=== PATIENT | female | born 2000 | race African-American/Black ===

== ENCOUNTER 2019-11-04 19:40 | Emergency (ER) | payer SELFPAY ==
[2019-11-04 19:59] VITALS: BP 121/59
--- NOTE | 2019-11-04 21:21 | ER Document Report ---
ED Medical Screen (RME) - General Chief Complaint: Pelvic Pain Stated Complaint: ABDOMINAL PAIN VAGINAL BLEEDING Time Seen by Provider: 11/04/19 21:19 Mode of Arrival: Wheelchair Information source: Patient Notes: 18-year-old female presents to ED for vaginal bleeding and pelvic pain that started this morning. She states she was bleeding heavily earlier but now she is just spotting. She states her last menstrual cycle was last week and that she started bleeding this morning. She states she was out in the heat earlier and got overheated before she started with the bleeding and pain. She does have a history of scoliosis asthma and left torn meniscus. She states she does not smoke cigarettes she drinks about once a month and smokes marijuana occasionally but not recently. She is alert oriented respirations regular nonlabored speaking in full sentences. I have greeted and performed a rapid initial assessment of this patient. A comprehensive ED assessment and evaluation of the patient, analysis of test results and completion of medical decision making process will be conducted by an additional ED providers. - Related Data Home Medications: control, vinocin, singulair Past Medical History - Social History Chew tobacco use (# tins/day): No Frequency of alcohol use: Occasional Drug Abuse: Marijuana Physical Exam - Vital signs Vitals: Temp Pulse Resp BP Pulse Ox 99.1 F 74 16 121/59 L 99 11/04/19 19:52 11/04/19 19:52 11/04/19 19:52 11/04/19 19:52 11/04/19 19:52 Course - Vital Signs Vital signs: Temp Pulse Resp BP Pulse Ox 99.1 F 74 16 121/59 L 99 11/04/19 21:17 11/04/19 19:52 11/04/19 19:52 11/04/19 19:52 11/04/19 19:52
[2019-11-04] MEDS ORDERED: IBUPROFEN 800 MG TABLET PO ONE (21:24)
[2019-11-04 23:00] LABS: APPEARANCE,URINE SLIGHTLY-CLOUDY; BILIRUBIN,URINE NEGATIVE (NEGATIVE); COLOR,URINE YELLOW; GLUCOSE, URINE NEGATIVE (NEGATIVE); KETONES,URINE NEGATIVE (NEGATIVE); LEUKOCYTE ESTERASE,URINE NEGATIVE (NEGATIVE); NITRITE,URINE NEGATIVE (NEGATIVE); PROTEIN,URINE NEGATIVE (NEGATIVE); UROBILINOGEN,URINE NEGATIVE mg/dL (<2.0)
[2019-11-04 23:03] LABS: ABSOLUTE BASOPHILS # (AUTO) 0.1 10^3/uL (0.0-0.2); ABSOLUTE EOSINOPHILS # (AUTO) 0.2 10^3/uL (0.0-0.6); ABSOLUTE LYMPHOCYTES (AUTO) 2.7 10^3/uL (0.5-4.7); ABSOLUTE MONOCYTES (AUTO) 0.4 10^3/uL (0.1-1.4); BASOPHILS % (AUTO) 0.8 % (0-2); EOSINOPHILS % (AUTO) 3.7 % (0-6); HEMATOCRIT 38.1 % (36.0-47.0); HEMOGLOBIN 13.2 g/dL (12.0-15.5); LYMPHOCYTES % (AUTO) 42.1 % (13-45); MEAN CORPUSCULAR HEMOGLOBIN 31.8 pg (27.0-33.4); MEAN CORPUSCULAR HGB CONC 34.7 g/dL (32.0-36.0); MEAN CORPUSCULAR VOLUME 92 fl (80-97); MONOCYTES % (AUTO) 5.6 % (3-13); PLATELET COUNT 251 10^3/uL (150-450); RED BLOOD COUNT 4.15 10^6/uL (3.72-5.28); RED CELL DISTRIBUTION WIDTH 12.7 % (11.5-14.0); SEGMENTED NEUTROPHILS % (AUTO) 47.8 % (42-78); TOTAL CELLS COUNTED % (AUTO) 100 %; WHITE BLOOD COUNT 6.4 10^3/uL (4.0-10.5)
--- NOTE | 2019-11-04 23:09 | RADIOLOGY REPORT (SQ) ---
EXAM DESCRIPTION: ULTRASOUND PELVIS TRANSABDOMINAL AND TRANSVAGINAL AND DOPPLER EVALUATION OF THE OVARIES CLINICAL HISTORY: History of bleeding. COMPARISON: None available TECHNIQUE: A transabdominal and transvaginal pelvic ultrasound was done, followed by Doppler evaluation of the ovaries. FINDINGS: Uterus measures 6.8 x 3.1 x 4.3 centimeters. There are no focal lesions in the uterus. The endometrium in double layer thickness measures 3.1 mm. The right ovary measures 2.4 x 2.2 x 1.6 centimeters. The left ovary measures 2.8 x 1.6 x 3.2 centimeters. Presumed dominant left ovarian follicle is identified. There is normal color flow and Doppler signal in the right and the left ovary. There are no focal ovarian lesions on either side. There are no focal adnexal masses on either side. There is no evidence of significant free fluid in the cul-de-sac. IMPRESSION: Normal ultrasound appearance of the uterus and ovaries.
[2019-11-04 23:18] LABS: ALBUMIN 4.6 g/dL (3.5-5.0); ALKALINE PHOSPHATASE 67 U/L (38-126); ASPARTATE AMINO TRANSFERASE 24 U/L (14-36); BILIRUBIN,TOTAL 0.5 mg/dL (0.2-1.3); BLOOD UREA NITROGEN 12 mg/dL (7-20); CALCIUM 9.5 mg/dL (8.4-10.2); CARBON DIOXIDE 24 mmol/L (22-30); CHLORIDE 109 mmol/L (98-107); GLUCOSE 88 mg/dL (75-110); POTASSIUM 4.2 mmol/L (3.6-5.0); TOTAL PROTEIN 7.3 g/dL (6.3-8.2)
[2019-11-04 23:39] LABS: ANION GAP 4 (5-19)
== END 2019-11-05 00:24 | disposition left against medical advice (07) ==
LOC: ER 19:40
DX: R10.2 Pelvic and perineal pain (principal); N93.8 Other specified abnormal uterine and vaginal bleeding; Z79.3 Long term (current) use of hormonal contraceptives
CPT/HCPCS: 36415; 76830; 80053; 81001; 84702; 85025; 87086; 87088; 99281

== ENCOUNTER 2019-11-05 14:21 | Emergency (ER) | payer OTHER ==
--- NOTE | 2019-11-05 15:13 | ER Document Report ---
ED Medical Screen (RME) - General Chief Complaint: Vaginal Bleeding Stated Complaint: ABDOMINAL,CHILLS,NAUSEA Time Seen by Provider: 11/05/19 15:04 Mode of Arrival: Ambulatory Information source: Patient Notes: 18-year-old female presented to ED for complaint of vaginal bleeding and pelvic/lower abdominal pain. She was seen yesterday but the pain got so bad she went home before waiting for the results. She is alert oriented respirations regular nonlabored speaking in full sentences. We will repeat the labs and the ultrasound yesterday was negative. She states today the pain got so bad she passed out so she returned to the emergency room. Patient is alert oriented respirations regular nonlabored speaking in full sentences. I have greeted and performed a rapid initial assessment of this patient. A comprehensive ED assessment and evaluation of the patient, analysis of test results and completion of medical decision making process will be conducted by an additional ED providers. - Related Data Allergies/Adverse Reactions: peach Allergy (Verified 11/04/19 21:20) Home Medications: Montelukast Past Medical History - Social History Drug Abuse: Marijuana Physical Exam - Vital signs Vitals: Temp Pulse Resp BP Pulse Ox 98.2 F 71 16 119/75 99 11/05/19 14:27 11/05/19 14:27 11/05/19 14:27 11/05/19 14:27 11/05/19 14:27 Course - Vital Signs Vital signs: Temp Pulse Resp BP Pulse Ox 98.2 F 71 16 119/75 99 11/05/19 14:27 11/05/19 14:27 11/05/19 14:27 11/05/19 14:27 11/05/19 14:27
[2019-11-05 15:37] LABS: ABSOLUTE EOSINOPHILS # (AUTO) 0.2 10^3/uL (0.0-0.6); ABSOLUTE LYMPHOCYTES (AUTO) 1.8 10^3/uL (0.5-4.7); ABSOLUTE MONOCYTES (AUTO) 0.3 10^3/uL (0.1-1.4); ABSOLUTE NEUT (AUTO) 2.7 10^3/uL (1.7-8.2); BASOPHILS % (AUTO) 0.9 % (0-2); EOSINOPHILS % (AUTO) 3.3 % (0-6); HEMATOCRIT 38.9 % (36.0-47.0); HEMOGLOBIN 13.8 g/dL (12.0-15.5); MEAN CORPUSCULAR HEMOGLOBIN 32.5 pg (27.0-33.4); MEAN CORPUSCULAR HGB CONC 35.6 g/dL (32.0-36.0); MEAN CORPUSCULAR VOLUME 91 fl (80-97); MONOCYTES % (AUTO) 5.4 % (3-13); PLATELET COUNT 241 10^3/uL (150-450); RED BLOOD COUNT 4.26 10^6/uL (3.72-5.28); RED CELL DISTRIBUTION WIDTH 12.7 % (11.5-14.0); SEGMENTED NEUTROPHILS % (AUTO) 53.4 % (42-78); TOTAL CELLS COUNTED % (AUTO) 100 %
[2019-11-05 15:40] LABS: APPEARANCE,URINE CLEAR; BILIRUBIN,URINE NEGATIVE (NEGATIVE); COLOR,URINE YELLOW; GLUCOSE, URINE NEGATIVE (NEGATIVE); KETONES,URINE NEGATIVE (NEGATIVE); LEUKOCYTE ESTERASE,URINE NEGATIVE (NEGATIVE); NITRITE,URINE NEGATIVE (NEGATIVE); PROTEIN,URINE NEGATIVE (NEGATIVE); URINE SPECIFIC GRAVITY 1.021; UROBILINOGEN,URINE NEGATIVE mg/dL (<2.0)
[2019-11-05 15:53] LABS: ALBUMIN 4.8 g/dL (3.5-5.0); ALKALINE PHOSPHATASE 59 U/L (38-126); ANION GAP 6 (5-19); ASPARTATE AMINO TRANSFERASE 24 U/L (14-36); BILIRUBIN,TOTAL 0.9 mg/dL (0.2-1.3); BLOOD UREA NITROGEN 11 mg/dL (7-20); CALCIUM 9.7 mg/dL (8.4-10.2); CARBON DIOXIDE 24 mmol/L (22-30); CHLORIDE 109 mmol/L (98-107); GLUCOSE 90 mg/dL (75-110); POTASSIUM 4.3 mmol/L (3.6-5.0); TOTAL PROTEIN 7.6 g/dL (6.3-8.2)
[2019-11-05 15:55] LABS: URINE AMPHETAMINES SCREEN NEGATIVE; URINE BARBITURATES SCREEN NEGATIVE; URINE BENZODIAZEPINES SCREEN NEGATIVE; URINE COCAINE SCREEN NEGATIVE; URINE MARIJUANA (THC) SCREEN NEGATIVE; URINE METHADONE SCREEN NEGATIVE; URINE PHENCYCLIDINE SCREEN NEGATIVE
[2019-11-05] MEDS ORDERED: OXYCODONE-ACETAMINOPHEN 5-325 MG TABLET PO ONE (17:21)
[2019-11-05] MEDS ORDERED: KETOROLAC TROMETHAMINE 60 MG/2 ML SDV IM ONE (17:21)
--- NOTE | 2019-11-05 17:28 | ER Document Report ---
ED General - General Chief Complaint: Vaginal Bleeding Stated Complaint: ABDOMINAL,CHILLS,NAUSEA Time Seen by Provider: 11/05/19 15:04 Primary Care Provider: MELLY BONNER MD [ACTIVE STAFF] - Follow up as needed Mode of Arrival: Ambulatory - HPI Notes: Patient is a 18-year-old female presents emergency department for evaluation of pelvic pain and abnormal vaginal bleeding. She has a Norplant. She states that yesterday she was out to dinner, went to the bathroom. She had abnormal vaginal bleeding. She had some severe pelvic pain associated with it. She states it still remains, has improved, but is still significant. She states that she had heavy bright red bleeding yesterday, her bleeding today is more similar to regular menstruation. She said no fevers. She states she felt chilled when her pain came on. She states that in the past she has had abnormal bleeding when she becomes very stressed, overheated, or "overworks herself." - Related Data Allergies/Adverse Reactions: peach Allergy (Verified 11/04/19 21:20) Home Medications: Montelukast, minocycline, albuterol Past Medical History - General Information source: Patient - Social History Smoking Status: Never Smoker Drug Abuse: Marijuana Family History: Reviewed & Not Pertinent Pulmonary Medical History: Reports: Hx Asthma Musculoskeletal Medical History: Reports Hx Musculoskeletal Deformity - Left knee meniscal tear Surgical Hx: Negative Review of Systems - Review of Systems Female Genitourinary: See HPI -: Yes All other systems reviewed and negative Physical Exam - Vital signs Vitals: Temp Pulse Resp BP Pulse Ox 98.2 F 71 16 119/75 99 11/05/19 14:27 11/05/19 14:27 11/05/19 14:27 11/05/19 14:27 11/05/19 14:27 - Notes Notes: Vital signs reviewed, please refer to chart. Head is normocephalic, atraumatic. Pupils equal round, reactive to light. Neck is supple without meningismus. Heart is regular rate and rhythm. Lungs are clear to auscultation bilaterally. Abdomen is soft, nontender, normoactive bowel sounds throughout. Extremities without cyanosis, clubbing. Posterior calves are nontender. Peripheral pulses are equal. Skin is warm and dry. Patient is awake, alert, neurological exam is nonfocal. Course - Re-evaluation Re-evalutation: 11/05/19 17:25 Patient presents to the emergency department for evaluation of abnormal vaginal bleeding and pelvic pain. She denies any discharge. She states this is happened in the past. My suspicion is that this is secondary to her Norplant. She is given Toradol and Percocet here. She had ultrasound done yesterday which showed absolutely no abnormality. Her blood work and urine are unremarkable. Her test is negative. I strongly encouraged her to follow-up with gynecology. She may benefit from switching her control methods at this time given her frequent breakthrough bleeding. Otherwise I will send her home with a prescription for anti-inflammatories and referral onto OB. She is amenable to this plan. She is to return the ED with worsening or new concerning symptoms of any sort. - Vital Signs Vital signs: Temp Pulse Resp BP Pulse Ox 98 F 70 16 109/80 98 11/05/19 17:38 11/05/19 17:38 11/05/19 17:38 11/05/19 17:38 11/05/19 17:38 - Laboratory Result Diagrams: 11/05/19 15:20 11/05/19 15:20 Laboratory results interpreted by me: 11/05/19 11/05/19 15:20 15:20 Chloride 109 H Urine Blood SMALL H Discharge - Discharge Clinical Impression: Abnormal vaginal bleeding in premenopausal patient, Pelvic pain Condition: Good Disposition: HOME, SELF-CARE Instructions: Pelvic Pain ([facility]), Vaginal Bleeding ([facility]) Additional Instructions: Take medication as prescribed. Follow-up with OB in 1 to 2 weeks. Return emergency department worsening or new concerning symptoms of any sort. Prescriptions: Naproxen [Naprosyn] 500 mg PO BID #20 tablet Referrals: MLELY BONNER MD [ACTIVE STAFF] - Follow up as needed
[2019-11-05 17:39] VITALS: BP 109/80
== END 2019-11-05 17:55 | disposition home or self-care (01) ==
LOC: ER 14:21
DX: N93.8 Other specified abnormal uterine and vaginal bleeding (principal); R10.2 Pelvic and perineal pain; R68.83 Chills (without fever); R11.0 Nausea
CPT/HCPCS: 99284; 96372; 36415; 84703; 85025; 80053; 81001; 80307; J1885

== ENCOUNTER 2019-12-24 17:22 | Emergency (ER) | payer MEDICAID ==
[2019-12-24] MEDS ORDERED: ONDANSETRON 4 MG TAB.RAPDIS PO ONE (18:35)
[2019-12-24] MEDS ORDERED: ACETAMINOPHEN 325 MG TABLET PO ONE (18:35)
--- NOTE | 2019-12-24 18:39 | ER Document Report ---
ED General - General Chief Complaint: Nausea/Vomiting Stated Complaint: NAUSEA Time Seen by Provider: 12/24/19 18:00 Primary Care Provider: JOSELITO SWIFT MD [COMMUNITY BASED STAFF] - Follow up as needed Mode of Arrival: Ambulatory Information source: Patient Notes: 18-year-old female past medical history significant for anxiety, depression, asthma presents to the emergency room complaining of generalized weakness with nausea,abdominal pain, chest pain, and a headache that started earlier this morning. Describes the chest pain and headache as a dull ache, describes abdominal pain as cramping denies any fevers. Denies worst headache of her life. Denies any sudden thunderclap. Complains of chills. No medications for symptoms. Had negative COVID-19 test on Saturday. No recent travel. No known COVID-19 exposure. Has been eating and drinking normally. TRAVEL OUTSIDE OF THE [place] IN LAST 30 DAYS: No - Related Data Allergies/Adverse Reactions: peach Allergy (Verified 12/24/19 18:10) Past Medical History - General Information source: Patient - Social History Smoking Status: Never Smoker Frequency of alcohol use: Occasional Drug Abuse: Marijuana Family History: Reviewed & Not Pertinent Patient has homicidal ideation: No Pulmonary Medical History: Reports: Hx Asthma Musculoskeletal Medical History: Reports Hx Musculoskeletal Deformity - Left knee meniscal tear Psychiatric Medical History: Reports: Hx Depression - anxiety Review of Systems - Review of Systems Constitutional: Chills, Malaise EENT: No symptoms reported Cardiovascular: Chest pain Respiratory: No symptoms reported Gastrointestinal: Abdominal pain, Nausea. denies: Diarrhea, Vomiting Genitourinary: No symptoms reported Musculoskeletal: No symptoms reported Skin: No symptoms reported Neurological/Psychological: Headaches -: Yes All other systems reviewed and negative Physical Exam - Vital signs Vitals: Temp Pulse Resp BP Pulse Ox 98.3 F 89 18 117/69 100 12/24/19 18:00 12/24/19 18:00 12/24/19 18:00 12/24/19 18:00 12/24/19 18:00 - Notes Notes: VITAL SIGNS: Within normal limits. GENERAL: Mild acute distress, non-toxic appearance. HEAD: Normal with no signs of head trauma. EYES: PERRLA, EOMI, conjunctiva normal, no discharge. EARS: Hearing grossly intact. NOSE: Normal. THROAT: Oropharynx is normal. NECK: Normal range of motion, no tenderness, supple, no lymphadenopathy, No adenopathy, no JVD. CHEST: Clear breath sounds bilaterally. No wheezes, rales, or rhonchi. CARDIAC: Regular rate and rhythm. S1 and S2, without murmurs, gallops, or rubs. VASCULAR: No Edema. Peripheral pulses normal and equal in all extremities. ABDOMEN: Normal and soft with no tenderness, no masses or pulsatile masses. No organomegaly. Positive bowel sounds x4. No CVA tenderness noted bilaterally. GASTROINTESTINAL: Bowel sounds normal GENITOURINARY: Normal, No tenderness LYMPATHTIC: No lymphadenopathy noted. MUSCULOSKELETAL: Good range of motion of all major joints. Extremities without clubbing, cyanosis or edema. NEUROLOGICAL: Alert and oriented x 3. No focal sensory or strength deficits. Speech normal. Follows commands appropriately. PSYCHIATRIC: Normal Affect, judgement and mood. SKIN: Normal appearance with no rashes or lesions. Course - Re-evaluation Re-evalutation: 12/24/19 20:31 HEART Score: History 0 ECG 0 Age 0 Risk Factors 0 Troponin 0 Total: 0 12/24/2019 21:10 Chest pain in a patient without evidence of cardiac or other serious etiology on workup today. I discussed with patient that, based on their age, risk factors and emergency department testing today, the likelihood that their symptoms are related to a heart attack is very low (estimated risk of heart attack or over the next 30 days of less than 1%). The patient demonstrates decision making capacity and has verbalized an understanding of these risks to me. Based on this, the patient has chosen to follow-up as an outpatient. Usual chest pain return precautions reviewed. The patient states understanding and agreement with this plan. 12/24/19 21:09 Patient is resting comfortably she is currently pain-free. Nausea has resolved. Able to tolerate p.o. fluids. All test results were reviewed with patient. Counseled to rest, push fluids, Tylenol and or Motrin as needed for general body aches. Zofran as prescribed for nausea. Recheck with a primary care physician if not improving in 2 to 3 days. On-call physician was provided. Patient was given strict return to the emergency room guidelines. Return for any new or worsening symptoms. All questions were answered. Patient verbalized understanding and agrees with plan of care. 12/24/19 21:10 - Vital Signs Vital signs: Temp Pulse Resp BP Pulse Ox 98.2 F 82 17 118/68 100 12/24/19 21:31 12/24/19 21:31 12/24/19 21:31 12/24/19 21:31 12/24/19 21:31 - Laboratory Result Diagrams: 12/24/19 18:57 12/24/19 18:57 Laboratory results interpreted by me: 12/24/19 19:00 Urine Ketones TRACE H Urine Blood MODERATE H Ur Leukocyte Esterase TRACE H - Diagnostic Test Radiology reviewed: Reports reviewed - EKG Interpretation by Ne EKG shows normal: Sinus rhythm Rate: Normal Additional EKG results interpreted by me: 12/24/19 21:05 EKG was interpreted by ED physician Dr. pacheco No acute STEMI Sinus rhythm at a rate of [address] wave abnormalities No previous EKG for comparison Discharge - Discharge Clinical Impression: Chest pain of unknown etiology, Nausea, Weakness Headache Qualifiers: Headache type: unspecified Headache chronicity pattern: acute headache Intractability: not intractable Qualified Code(s): R51 - Headache Condition: Stable Disposition: HOME, SELF-CARE Instructions: Chest Pain of Unclear Cause ([facility]), Headache ([facility]), Nausea or Vomiting, Nonspecific ([facility]), Weakness ([facility]) Additional Instructions: Rest, push fluids, Tylenol and or Motrin as needed for pain. Zofran as needed for nausea. Outpatient follow-up with a primary care physician if not improving in 2 to 3 days. Return to the emergency room for any new or worsening symptoms. Prescriptions: Ondansetron [Zofran Odt 4 mg Tablet] 1 tab PO Q4H PRN #12 tab.rapdis PRN Reason: For Nausea/Vomiting Forms: Return to Work Referrals: JOSELITO SWIFT MD [COMMUNITY BASED STAFF] - Follow up as needed
[2019-12-24 19:14] LABS: ABSOLUTE BASOPHILS # (AUTO) 0.1 10^3/uL (0.0-0.2); ABSOLUTE EOSINOPHILS # (AUTO) 0.1 10^3/uL (0.0-0.6); ABSOLUTE LYMPHOCYTES (AUTO) 2.1 10^3/uL (0.5-4.7); ABSOLUTE MONOCYTES (AUTO) 0.5 10^3/uL (0.1-1.4); ABSOLUTE NEUT (AUTO) 4.6 10^3/uL (1.7-8.2); BASOPHILS % (AUTO) 0.8 % (0-2); EOSINOPHILS % (AUTO) 1.3 % (0-6); HEMATOCRIT 37.5 % (36.0-47.0); HEMOGLOBIN 13.1 g/dL (12.0-15.5); LYMPHOCYTES % (AUTO) 28.9 % (13-45); MEAN CORPUSCULAR HEMOGLOBIN 32.1 pg (27.0-33.4); MEAN CORPUSCULAR HGB CONC 34.8 g/dL (32.0-36.0); MEAN CORPUSCULAR VOLUME 92 fl (80-97); MONOCYTES % (AUTO) 6.4 % (3-13); PLATELET COUNT 232 10^3/uL (150-450); RED BLOOD COUNT 4.07 10^6/uL (3.72-5.28); RED CELL DISTRIBUTION WIDTH 12.5 % (11.5-14.0); SEGMENTED NEUTROPHILS % (AUTO) 62.6 % (42-78); TOTAL CELLS COUNTED % (AUTO) 100 %; WHITE BLOOD COUNT 7.3 10^3/uL (4.0-10.5)
--- NOTE | 2019-12-24 19:16 | RADIOLOGY REPORT (SQ) ---
EXAM DESCRIPTION: CHEST SINGLE VIEW IMAGES COMPLETED DATE/TIME: 12/24/2019 7:08 pm REASON FOR STUDY: chest pain COMPARISON: None. EXAM PARAMETERS: NUMBER OF VIEWS: One view. TECHNIQUE: Single frontal radiographic view of the chest acquired. RADIATION DOSE: NA LIMITATIONS: None. FINDINGS: LUNGS AND PLEURA: No opacities, masses or pneumothorax. No pleural effusion. MEDIASTINUM AND HILAR STRUCTURES: No masses. Contour normal. HEART AND VASCULAR STRUCTURES: Heart normal in size. Normal vasculature. BONES: No acute findings. HARDWARE: None in the chest. OTHER: No other significant finding. IMPRESSION: NO ACUTE RADIOGRAPHIC FINDING IN THE CHEST. TECHNICAL DOCUMENTATION: JOB ID: [id number] 2010 [employer]- All Rights Reserved Reading location - IP/workstation name: [email or web address]
[2019-12-24 19:36] LABS: ALBUMIN 4.5 g/dL (3.5-5.0); ALKALINE PHOSPHATASE 59 U/L (38-126); ANION GAP 8 (5-19); ASPARTATE AMINO TRANSFERASE 26 U/L (14-36); BILIRUBIN,DIRECT 0.2 mg/dL (0.0-0.4); BILIRUBIN,TOTAL 0.8 mg/dL (0.2-1.3); BLOOD UREA NITROGEN 9 mg/dL (7-20); CALCIUM 9.3 mg/dL (8.4-10.2); CARBON DIOXIDE 24 mmol/L (22-30); CHLORIDE 105 mmol/L (98-107); GLUCOSE 80 mg/dL (75-110)
[2019-12-24 21:32] VITALS: BP 118/68
[2019-12-24 21:43] LABS: AMORPHOUS SEDIMENT,URINE 1+ /HPF; APPEARANCE,URINE TURBID; BILIRUBIN,URINE NEGATIVE (NEGATIVE); COLOR,URINE YELLOW; GLUCOSE, URINE NEGATIVE (NEGATIVE); KETONES,URINE TRACE mg/dL (NEGATIVE); LEUKOCYTE ESTERASE,URINE TRACE (NEGATIVE); NITRITE,URINE NEGATIVE (NEGATIVE); PROTEIN,URINE NEGATIVE (NEGATIVE); URINE SPECIFIC GRAVITY 1.028; UROBILINOGEN,URINE NEGATIVE mg/dL (<2.0)
--- NOTE | 2019-12-25 18:37 | EKG REPORT ---
SEVERITY:- NORMAL ECG - SINUS RHYTHM : Confirmed by: Aj Armando MD 25-Dec-2019 18:35:42
== END 2019-12-24 21:32 | disposition home or self-care (01) ==
LOC: ER 17:22
DX: R07.9 Chest pain, unspecified (principal); R11.2 Nausea with vomiting, unspecified; R53.1 Weakness; R51 Headache
CPT/HCPCS: 93005; 99285; 36415; 84703; 85025; 80053; 81001; 84484; 71045; 93010; S0119